=== PATIENT | female | born 1950 | race Caucasian/White ===

== ENCOUNTER 2022-04-08 17:41 | Emergency (ER) | payer MEDICARE, SELFPAY ==
[2022-04-08 17:52] VITALS: BP 143/116; PULSE 79; RESP 16; TEMP 36.1; O2SAT 99
--- NOTE | 2022-04-08 20:28 | ED.SKABFB ---
HPI - Skin/Abscess/Foreign Bdy General Chief complaint: Skin/Abscess/Foreign Body Stated complaint: red around left lower lip Time Seen by Provider: 04/08/22 20:28 Source: patient, RN notes reviewed and old records reviewed Mode of arrival: ambulatory Limitations: no limitations History of Present Illness HPI narrative: 72 year old female who presents to [facility] care with complaints of yesterday having white filled lesion to the left lower lip which she squeezed and now area is red and swollen with no acute pain to area. Patient voices concern for abscess or cellulitus to area. Patient has taken aspirin and applied ice to area. MD complaint: abscess/boil Onset (ago): day(s) (2) Treatments prior to arrival: attempted to drain pus at home Related Data Home Medications Medication Instructions Recorded Confirmed ergocalciferol (vitamin D2) 1,250 1,250 mcg PO WEEKLY 04/08/22 04/08/22 mcg (50,000 unit) capsule famotidine 20 mg tablet 20 mg PO BID 04/08/22 04/08/22 metoprolol succinate 25 mg 25 mg PO DAILY 04/08/22 04/08/22 tablet,extended release 24 hr sertraline 100 mg tablet 100 mg PO DAILY 04/08/22 04/08/22 Allergies Allergy/AdvReac Type Severity Reaction Status Date / Time Penicillins Allergy Intermediate Hives Verified 04/08/22 19:25 Review of Systems Review of Systems: CONSTITUTIONAL: Denies fever, chills, or sweats. CARDIOVASCULAR: Denies chest pain, palpitations, or edema. RESPIRATORY: Denies cough or dyspnea. GASTROINTESTINAL: Denies abdominal pain, nausea, vomiting SKIN: Reports redness and swelling. White purulent drainage from lesion to left lip squeezed on lesion now red and swollen lesion with surrounding redness, no pain beyond proportion MUSCULOSKELETAL: Denies myalgia. NEUROLOGIC: Denies headache, numbness All systems reviewed & are unremarkable except as noted in HPI and below PMFSH Past Medical History Medical History (Updated 04/15/22 @ 08:58 by Brittany Sharpe NP) GERD (gastroesophageal reflux disease) Hypertension OCD (obsessive compulsive disorder) Surgical History Surgical History (Updated 04/15/22 @ 08:48 by Brittany Sharpe NP) History of lumpectomy of right breast radiation treatment 2009 Social History Social History (Updated 04/15/22 @ 08:48 by Brittany Sharpe NP) Smoking status: Never smoker Alcohol intake: unknown Substance use: never Gender identity (if verbalized by the patient): Female Comments At time of signature, agree with nursing past medical, surgical, social and family history. There is no relevant family history pertinent to the presenting complaint Exam Narrative: GENERAL: Well-appearing, well-nourished, and in no acute distress. HEAD: Normocephalic, atraumatic. EYES: PERRLA and EOMI. ENT: Nares clear, no rhinorrhea or epistaxis. Mucous membranes moist. NECK: Supple. no lymphadenopathy CHEST: Clear to auscultation. No respiratory distress.SAO2 99% on room air HEART: Regular rate and rhythm. No murmur heard. Normal peripheral pulses. ABDOMEN: Soft, nontender, nondistended, normal active bowel sounds. EXTREMITIES: Normal range of motion. No edema SKIN: Warm, dry. Erythema, induration, minimal tenderness, no warmth to area around lesion left lip. NEURO: No focal deficits. Alert and oriented x3. Course Course Emergency Course: Patient is aware of diagnosis, understands and agrees to treatment plan. Anticipatory guidance given. Patient agrees to follow-up as directed and is aware of reasons to seek care at the emergency department. Portions of this record may have been created with voice recognition software Level of Care: Express Care Visit Vital Signs Vital signs: Vital Signs Temperature 36.1 C L 04/08/22 17:52 Pulse Rate 79 04/08/22 17:52 Respiratory Rate 16 04/08/22 17:52 Blood Pressure 143/116 H 04/08/22 17:52 Pulse Oximetry 99 04/08/22 17:52 Oxygen Delivery Room Air 04/08/22 17:52 Temperature 36.1 C L
== END 2022-04-08 20:40 | disposition home or self-care (01) ==
PROVIDERS: Emergency Provider Registered Nurse; PCP Internal Medicine
DX: L02.01 Cutaneous abscess of face (principal)
CPT/HCPCS: 99213; G0463

== ENCOUNTER 2022-07-10 10:12 | Emergency (ER) | payer MEDICARE, SELFPAY ==
--- NOTE | 2022-07-10 10:18 | ED.SKABFB ---
HPI - Skin/Abscess/Foreign Bdy General Chief complaint: Skin/Abscess/Foreign Body Stated complaint: left foot non healing wound Time Seen by Provider: 07/10/22 10:18 Source: patient and RN notes reviewed History of Present Illness HPI narrative: Patient is a 72-year-old female presents to urgent care with complaints of a wound on left foot it has been there for approximately 5/6 days. Patient states that it has not drained. States that she put Neosporin time last night. Patient is unsure of how she developed the wound but states that she does wear loafers without socks most days. Denies any fevers. No other acute complaints. No acute distress noted. Patient aware of the plan of care. Some parts of this dictation were generated by voice recognition software and may contain typographical and/or grammatical inaccuracies. Related Data Home Medications Medication Instructions Recorded Confirmed ergocalciferol (vitamin D2) 1,250 1,250 mcg PO WEEKLY 04/08/22 04/08/22 mcg (50,000 unit) capsule famotidine 20 mg tablet 20 mg PO BID 04/08/22 04/08/22 metoprolol succinate 25 mg 25 mg PO DAILY 04/08/22 04/08/22 tablet,extended release 24 hr sertraline 100 mg tablet 100 mg PO DAILY 04/08/22 04/08/22 Allergies Allergy/AdvReac Type Severity Reaction Status Date / Time Penicillins Allergy Intermediate Hives Verified 04/08/22 19:25 Review of Systems Review of Systems: CONSTITUTIONAL: Denies fever, chills, or sweats. EYES: Denies visual changes, redness, or discharge. ENT: Denies rhinorrhea, congestion, sore throat, or otalgia. CARDIOVASCULAR: Denies chest pain, palpitations, or edema. RESPIRATORY: Denies cough or dyspnea. GASTROINTESTINAL: Denies abdominal pain, nausea, vomiting, or diarrhea. GENITOURINARY: Denies dysuria or hematuria. SKIN: Reports a wound on the left foot MUSCULOSKELETAL: Denies back pain, joint pain, or myalgia. NEUROLOGIC: Denies headache, numbness, or weakness. All other systems reviewed are negative, except as documented in HPI. [facility] Past Medical History Medical History (Updated 07/10/22 @ 10:35 by ILA Miranda) GERD (gastroesophageal reflux disease) Hypertension OCD (obsessive compulsive disorder) Surgical History Surgical History (Updated 04/15/22 @ 08:48 by Brittany Sharpe NP) History of lumpectomy of right breast radiation treatment 2009 Social History Social History (Updated 04/15/22 @ 08:48 by Brittany Sharpe NP) Smoking status: Never smoker Alcohol intake: unknown Substance use: never Living arrangements: with family Gender identity (if verbalized by the patient): Female Comments At the time of my signature, I reviewed and agree with the nursing past medical, surgical, social, and family history. There is no relevant family history pertinent to the patient complaint. Exam Narrative: GENERAL: This is a well-nourished, well-developed patient, in no apparent distress. HEAD: normocephalic, atraumatic. EYES: PERRL. Sclera clear/white. Vision is grossly intact. EARS: External ears normal, auditory canals clear and without drainage, TMs normal without perforation. Hearing grossly intact. NOSE: External nose normal with no obvious nasal discharge, nares without redness, no rhinorrhea. THROAT: Mucous membranes moist NECK: Neck supple SKIN: 2 x 2 cm area of erythema to the lateral aspect of the left foot to the 5th metatarsal with 0.25 cm scabs without drainage. Warm, intact with no suspicious lesions or rash, good texture and turgor. NEURO: awake, alert, and oriented to person, place and time. There were no obvious focal neurologic abnormalities. EXTREMITIES: No clubbing, cyanosis, or edema. Positive strong pedal pulse with capillary refill less than 2 seconds. No signs of cellulitis to left lower extremity Course Course Level of Care: Express Care Visit Vital Signs Vital signs: Vital Signs Temperature 97.2 F L 07/10/22 10:19 Pulse Rate 82
[2022-07-10 10:19] VITALS: BP 141/60; PULSE 82; RESP 16; TEMP 36.2; O2SAT 95
== END 2022-07-10 10:42 | disposition home or self-care (01) ==
PROVIDERS: Emergency Provider Nurse Practitioner Family
DX: S91.302A Unspecified open wound, left foot, initial encounter (principal); I10 Essential (primary) hypertension; X58.XXXA Exposure to other specified factors, initial encounter
CPT/HCPCS: 99213; G0463

== ENCOUNTER 2024-12-20 10:51 | Emergency (ER) | payer MEDICARE, SELFPAY ==
--- OUTSIDE RECORDS SUMMARY | 2024-12-20 10:54 | XMS_ITS | Clinical Summary ---
Author Organization [facility] Address [address] [place] [address] Care Team Providers Care Seo Strategist Name Role Phone Anselmo Holt MD Primary Care Provider [phone] Allergies Active Allergy Reactions Criticality Noted Date Comments Latex Rash Low 11/11/2021 Nitrofurantoin Hives High 02/09/2011 Nitrofurantoin Macrocrystalline Hives High 02/09/2011 Nitrofurantoin Monohyd/M-Cryst Hives,Swelling High 09/14/2009 Penicillins Rash,Hives High 06/15/2009 Reaction: Hives, , Reaction: Hives, , Reaction: Hives, , Reaction: Hives, Sulfa (Sulfonamide Antibiotics) Hives High Medications ipratropium bromide (ATROVENT) 21 mcg (0.03 %) [place], Non-AerosolIndi cations:Vasomot or rhinitis Administer 2 Sprays in each nostril 2 times daily. 30 mL 4 05/09/20 23 Active ergocalciferol (VITAMIN D2) 50,000 unit capsule Take 1 Capsule (50,000 Units) by mouth every 7 days. 12 Capsule 3 05/10/20 23 Active famotidine (PEPCID) 20 mg tabletIndicatio ns:Gastroesopha geal reflux disease, unspecified whether esophagitis present Take 1 Tablet (20 mg) by mouth 2 times daily. 180 Tablet 3 08/13/19 24 Active ezetimibe (Zetia) 10 mg tablet Take 1 Tablet (10 mg) by mouth daily. 100 Tablet 3 09/12/19 24 Active doxycycline hyclate (VIBRAMYCIN) 100 mg capsule Take 1 Capsule (100 mg) by mouth 2 times daily. 20 Capsule 1 03/14/20 24 Active azelastine (ASTELIN) 137 mcg/actuation nasal spray Administer 2 Sprays in each nostril 2 times daily. 30 mL 3 03/14/20 24 Active gabapentin (NEURONTIN) 300 mg capsule Take 1 Capsule (300 mg) by mouth 3 times daily. 90 Capsule 3 03/14/20 24 Active sertraline (ZOLOFT) 100 mg tablet TAKE 1 TABLET(100 MG) BY MOUTH DAILY AT BEDTIME 90 Tablet 3 05/03/20 24 Active metoprolol succinate (TOPROL XL) 25 mg Extended Release 24 hour tablet TAKE 1 TABLET(25 MG) BY MOUTH DAILY AT BEDTIME 90 Tablet 3 12/05/19 25 Active metoprolol succinate (TOPROL XL) 25 mg Extended Release 24 hour tablet TAKE 1 TABLET(25 MG) BY MOUTH DAILY AT BEDTIME 90 Tablet 3 11/26/19 24 025 Discontinued Active Problems Patient Care Coordination No te Formatting of this note migh t be different from the original. 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/18 Problem Noted Date Diagnosed Date Prediabetes 09/16/2024 Gastroesophageal reflux disease 12/21/2021 History of breast cancer 05/29/2017 Hyperlipidemia 11/20/2016 HTN (hypertension) 09/22/2013 Chronic rhinitis 06/15/2009 OCD (obsessive compulsive disorder) 06/15/2009 Resolved Problems Problem Noted Date Diagnosed Date Resolved Date Gallstones 04/21/2021 05/10/2021 Breast cancer, stage 1 07/12/201005/29 Foot pain 06/15/2009 07/12/2010 Heart murmur 06/15/2009 11/28/2011 Encounters Date Type Department Care Team Description 12/03/2024 [facility] [address] [address] Anselmo Holt MD 11/26/2024 External Device Data ST[facility] ABSTRACTION Provider, Abstract 11/25/2024 External Device Data [facility]STRACTION Provider, Abstract 11/04/2024 External Device Data [facility]STRACTION Provider, Abstract 10/28/2024 External Device Data [facility] ABSTRACTION Provider, Abstract 10/07/2024 External Device Data [facility] ABSTRACTION Provider, Abstract 10/02/2024 External Device Data [facility] ABSTRACTION Provider, Abstract 10/01/2024 External Device Data [facility] ABSTRACTION Provider, Abstract 09/30/2024 External Device Data [facility] ABSTRACTION Provider, Abstract from Last 3 Months Immunizations Immunization Administration Dates Next Due (ADACEL/BOOSTRIX)(10 YR UP) TDAP VACCINE, 0.5ML, IM 05/14/2008,01/06/2008 (DONALD) COVID-19 VACCINE - EMERGENCY USE AUTHORIZATION, AD26,COV2S(PF) 0.5 ML IM SUSP 07/22/2020 (PNEUMOVAX 23)(50 YRS UP) PN EUMOCOCCAL POLYSACCHARIDE (PPV23) 0.5 ML, IM 11/06/2018 (PREVNAR 13)(6 WKS UP) PNEUM OCOCCAL CONJUGATE (PCV13) 0.5 ML, IM 10/04/2017 (PREVNAR 20)(6 WKS UP) PNEUM OCOCCAL CONJUGATE VACCINE 20-VALENT (PCV20), POLYSACCHARIDE SFT359 CONJUGATE, ADJUVANT 0.5 ML (PF) IM 09/12/2023 INFLUENZA VACCINE HIGH DOSE QUADRIVALENT 65 YR UP PF IM 03/13/2023,03/17/2021,01/14/2020 INFLUENZA VACCINE HIGH DOSE TRIVALENT SPLIT VIRUS, (65 YR UP), 0.5ML (PF), IM 03/14/2024 Influenza Seasonal Unspecifi ed Formulation IM 04/07/2022,04/02/2013 Influenza Vaccine High Dose 65+ Yrs IM 9 Family History Medical History Relation Name Comments No Known Problems Daughter Diabetes Father Isaac Olivia Cancer Maternal Grandfather [place] Dick Melanoma Maternal Grandfather [place] Dick Colon Cancer Maternal Grandmother Julianna Dick Cancer Mother Amy Andre High Cholesterol Mother Amy Andre Hypertension Mother Amy Andre Skin Cancer Mother Amy Andre Breast Cancer Paternal Grandmother Corwin Blood Clots Sister 1 may Cancer Sister 1 cosme Hypertension Sister 1 may No Known Problems Sister 2 Relation Name Status Comments Daughter Alive Father Isaac Olivia Maternal Grandfather [place] Dick Maternal Grandmother Julianna Tungett Mother Amy Powell Alive Paternal Grandmother Olivia Sister 1 may Alive Sister 2 Alive Social History Tobacco Use Types Packs/Day Years Used Date Smoking Tobacco: Never Passive Smoke Exposure: Never Smokeless Tobacco: Never Tobacco Cessation:Counseling Given: No Alcohol Use Standard Drinks/Week Comments Never 0 (1 standard drink = 0.6 oz pur e alcohol) Comments No Sex and Gender Information Value Date Recorded Sex Assigned at Not on file Legal Sex Female 4:45 AM 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 ENGINEER Gender Identity Not on file Sexual Orientation Not on file Occupation Industry Job Start Date Job End Date RETIRED Not on file Not on file Not on file Last Filed Vital Signs Vital Sign Reading Time Taken Comments Blood Pressure 118/62 09/16/2024 11:57 AM CDT Pulse 77 09/16/2024 11:57 AM CDT Temperature 36.4 C (97.6 F) 03/13/2023 11:35 AM CDT Respiratory Rate 16 03/13/2023 11:35 AM CDT Oxygen Saturation 96% 09/16/2024 11:57 AM CDT Inhaled Oxygen Concentration - - Weight 84.6 kg (186 lb 6.4 oz) 09/16/2024 11:57 AM CDT Height 160 cm (5' 3) 09/16/2024 11:57 AM CDT Body Mass Index 33.02 09/16/2024 11:57 AM CDT Plan of Treatment Upcoming Encounters Date Type Department Care Team (Late st Contact Info) Description 03/23/2025 3:00 PM 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 ENGINEER Office Visit [facility] [address] [id number] Anselmo Holt MD [address] [place], [place] [id number] Health Maintenance Due Date Last Done Comments FIT/ DNA Q 3 YEARS (AUTO ORDER) 1970 FIT-DNA Q 3 years 1997 FIT/FOBT Q 1 year 1997 Flex Sig/CT Colonography Q 5 years 1997 ZOSTER VACCINE (1 of 2) 2002 RSV VACCINE (60+ or ) (1 - Risk 60-74 years 1-dose series) 2012 FIT/FOBT Q 1 YEAR (AUTO ORDER) 04/23/2018 04/23/2017 DTAP/TDAP/TD VACCINES (3 - T d or Tdap) 05/14/2018 05/14/2008, 01/06/2008 COVID-19 Vaccine (2 - 2023-2 5 season) 2024 07/22/2020 Preventative Visit- Commercial 05/14/2024 0 09/12/2023, 07/14/2019, 09/17/2014, Additional history exists INFLUENZA VACCINE (#1) 2024 4, 03/13/2023, 04/07/2022, Additional history exists BREAST CANCER SCREENING 05/21/2025 05/21/19, 05/21/2024, 05/18/2023, Additional history exists FLEX SIG/CT COLONOGRAPHY Q 5 YEARS (AUTO ORDER) 04/26/2026 04/26/2021, 04/26/2021 OSTEOPOROSIS SCREENING 03/26/2028 3, 03/26/2023, 09/29/2020, Additional history exists COLORECTAL CANCER SCREENING (AUTO ORDER) 04/26/2031 04/26/2021, 04/26/2021, 04/26/2021, Additional history exists COLORECTAL SCREENING 04/26/2031 04/26/2021, 04/26/2021, 04/26/2021, Additional history exists Colorectal Cancer Screening (AUTO ORDER) 04/26/2031 Colorectal Cancer Screening 04/26/2031 PNEUMOCOCCAL VACCINE 50+ YEARS Completed 0 09/12/2023, 11/06/2018, 10/04/2017 Medical Devices Implanted Type Area Vision Rehabilitation Therapist Device Identifier Shelf Expiration Date Model / Serial / Lot Endo Clip Ii 10mm [id number] - [id number] Implanted:Qty : 1 on 04/27/2021 by Ronnie Tillman MD at [facility] Clip N/A: Abdomen [employer] - COVIDIEN [id number] 12/11/2025 [id number] / / [id number] Procedures Procedure Name Priority Date/Time Associated Diagnosis Comments MAMMO SCREEN BILAT W OR WO CAD Routine 05/18/2023 5:44 PM 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 ENGINEER XR DEXA BONE DENSITY AXIAL 1 OR MORE SITES Routine 03/26/2023 11:20 AM 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 ENGINEER Osteopenia of multiple sites COLONOSCOPY REPORT Routine 04/26/2021 from Last 3 Months or Most Recently Relevant to Health Maintenance Results * MAMMO SCREEN BILAT W OR WO CAD (05/18/2023 5:44 PM 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 ENGINEER) Anatomical Region Laterality Modality Breast Bilateral Mammography us Abstract Provider MAMMO ORDERABLES Edited Result - Final * XR DEXA BONE DENSITY AXIAL 1 OR MORE SITES (03/26/2023 11:20 AM 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 ENGINEER) Anatomical Region Laterality Modality Digital Radiogra phy 03/26/2023 12:0 0 PM 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 ENGINEER Impressions 03/26/2023 12:44 PM 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 ENGINEER IMPRESSION: This is a summary page. Please refer to the complete detailed report found in the Imaging Section of the [facility] EMR. Osteopenia. Lumbar Spine: t-Score: -1.8 Left Femoral Neck: t-Score: -1.7 Left Total Femur: t-Score: -1.2 Right Femoral Neck: t-Score: -2.3 Right Total Femur: t-Score: -1.5 Left Forearm: t-Score: -1.2 Statistical change: No significant change in BMD since the prior exam. FRAX FRACTURE RISK ASSESSMENT: (Only valid Between 40-89 Years Of Age) Risk factors: History of fracture as an adult. 10 Year Probability Of Fracture Major Osteoporotic: 20.2 % Hip: 4.5 % Comparison population: [place], Race: White A major osteoporotic fracture is defined as a fracture of the spine, forearm, hip or shoulder. Definitions: Normal: T-score above -1.0 Osteopenia T-score less than -1.0 and above -2.5 Osteoporosis: T-score <= -2.5 Follow-up Recommendations: Patients without high risk factors for osteoporosis T-score -1.0 to -1.5 - Consider repeat BMD in 5-10 years T-score -1.5 to - 2.0 - Consider repeat BMD in 3-5 years T-score -2.0 to - 2.5 - Consider repeat BMD every 2 years Patients on treatment for osteoporosis 1-2 years after initiation of treatment and every 2 years [address] Dr[address] Binu Dickerson MD DICTATION LOCATION: 1 Narrative 03/26/2023 12:44 PM 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 ENGINEER EXAMINATION: BONE DENSITY STUDY (DXA) DATE: 03/26/2023 11:20 AM HISTORY: 72 years Female. Postmenopausal. Osteopenia. Screening for osteoporosis. Orthopedic hardware L5-S1. PROCEDURE: Planar images of the lumbar spine, hip(s) and forearm(s) using a LUNAR DEXA scanner for bone mineral density determination (BMD). Prior bone density: 09/29/2020 FINDINGS: Lumbar Spine (L1-L2): t-Score: -1.8 0.962 g/sq cm Prior: 0.944 g/sq cm Left Femoral Neck: t-Score: -1.7 0.801 g/sq cm Prior: 0.748 g/sq cm Left Total Femur: t-Score: -1.2 Right Femoral Neck: t-Score: -2.3 0.723 g/sq cm Prior: 0.755 g/sq cm Right Total Femur: t-Score: -1.5 Left 33% Radius: t-Score: -1.2 0.767 g/sq cm Prior: 0.701 g/sq cm INCIDENTAL FINDINGS: L3-L4 excluded bcause of degenerative changes. Procedure Note Binu Dickerson MD - 03/26/2023 EXAMINATION: BONE DENSITY STUDY (DXA) DATE: 03/26/2023 11:20 AM HISTORY: 72 years Female. Postmenopausal. Osteopenia. Screening for osteoporosis. Orthopedic hardware L5-S1. PROCEDURE: Planar images of the lumbar spine, hip(s) and forearm(s) using a LUNAR DEXA scanner for bone mineral density determination (BMD). Prior bone density: 09/29/2020 FINDINGS: Lumbar Spine (L1-L2): t-Score: -1.8 0.962 g/sq cm Prior: 0.944 g/sq cm Left Femoral Neck: t-Score: -1.7 0.801 g/sq cm Prior: 0.748 g/sq cm Left Total Femur: t-Score: -1.2 Right Femoral Neck: t-Score: -2.3 0.723 g/sq cm Prior: 0.755 g/sq cm Right Total Femur: t-Score: -1.5 Left 33% Radius: t-Score: -1.2 0.767 g/sq cm Prior: 0.701 g/sq cm INCIDENTAL FINDINGS: L3-L4 excluded bcause of degenerative changes. IMPRESSION: This is a summary page. Please refer to the complete detailed report found in the Imaging Section of the [facility] EMR. Osteopenia. Lumbar Spine: t-Score: -1.8 Left Femoral Neck: t-Score: -1.7 Left Total Femur: t-Score: -1.2 Right Femoral Neck: t-Score: -2.3 Right Total Femur: t-Score: -1.5 Left Forearm: t-Score: -1.2 Statistical change: No significant change in BMD since the prior exam. FRAX FRACTURE RISK ASSESSMENT: (Only valid Between 40-89 Years Of Age) Risk factors: History of fracture as an adult. 10 Year Probability Of Fracture Major Osteoporotic: 20.2 % Hip: 4.5 % Comparison population: [place], Race: White A major osteoporotic fracture is defined as a fracture of the spine, forearm, hip or shoulder. Definitions: Normal: T-score above -1.0 Osteopenia T-score less than -1.0 and above -2.5 Osteoporosis: T-score <= -2.5 Follow-up Recommendations: Patients without high risk factors for osteoporosis T-score -1.0 to -1.5 - Consider repeat BMD in 5-10 years T-score -1.5 to - 2.0 - Consider repeat BMD in 3-5 years T-score -2.0 to - 2.5 - Consider repeat BMD every 2 years Patients on treatment for osteoporosis 1-2 years after initiation of treatment and every 2 years thereafter D[address] Dr[address] Binu Dickerson MD DICTATION LOCATION: 1 us Anselmo Holt MD DIAGNOSTIC IMAGING ORDERABLES Final Result * COLONOSCOPY REPORT (04/26/2021) us Abstract Provider GI PROCEDURE ORDERABLES Edited Result - Final EXTERNAL LAB from Last 3 Months or Most Recently Relevant to Health [place] [address] RX [employer] RX Member Subscriber Plan / Payer (Ef fective 2021-Present) Name:Juan Matamoros Relation to Subscriber:Self Name:Juan Matamoros Subscriber ID:Not on file Payer ID:Not on file Group ID:[id number] Type:RX Medicare Part D Address: [address] [place] [address] [employer] PPO [facility] Advance Directives For more information, please contact: [phone] * Full Code (Latest Code Status on File) Date Activated Date Inactivated Comments 04/27/2021 9:38 AM 04/27/2021 3:23 PM * Full Code Date Activated Date Inactivated Comments 04/27/2021 6:19 AM 04/27/2021 9:38 AM Care Teams Seo Strategist Relationship Specialty Start Date End Date Anselmo Holt MD PCP - General 06/15/09
--- OUTSIDE RECORDS SUMMARY | 2024-12-20 10:54 | XMS_ITS | Clinical Summary ---
Author Organization [facility] Address [address] [place] [address] Care Team Providers Care Special Procedures Tech Name Role Phone Jany Lino MD Primary Care Provider + Aft, Destinee Callahan MD PhD Unavailable Allergies Active Allergy Reactions Criticality Noted Date Comments Latex Hives,Itching,Other (See comments),Rash Medium 09/20/2021 blisters Nitrofurantoin Hives High 02/09/2011 Reaction: Hives, , , Nitrofurantoin Macrocrystalline Hives Medium 02/09/2011 Nitrofurantoin Monohyd/M-Cryst Hives High 05/21/2024 Penicillins Hives,Rash,Other (See comments) High 06/15/2009 Reaction: Hives Sulfa (Sulfonamide Antibiotics) Hives High Medications metoprolol XL (TOPROL-XL) 25 mg 24 hr tablet take 1 tablet by ORAL route every day 0 0 4 Active sertraline (ZOLOFT) 100 mg tablet take 1 tablet by ORAL route every day 0 0 4 Active famotidine (PEPCID) 20 mg tablet Take 1 tablet (20 mg total) by mouth 2 times daily 9 Active fluticasone propionate (FLONASE) 50 mcg/actuation nasal sprayIndications:A llergic Rhinitis Administer 1 spray into each nostril daily 9.9 mL 2 4 Active gabapentin (NEURONTIN) 300 mg capsule Take 1 capsule (300 mg total) by mouth 3 (three) times a day 4 Active ondansetron ODT (ZOFRAN-ODT) 4 mg disintegrating tablet Take 1 tablet (4 mg total) by mouth every 8 (eight) hours as needed 4 Active Active Problems Problem Noted Date Diagnosed Date Family history of colon cancer 03/02/2021 Overview (03/02/2021): Added automatically from request for surgery [id number] Encounter for screening colonoscopy 03/02/2021 Overview (03/02/2021): Added automatically from request for surgery [id number] Irritable bowel syndrome with diarrhea 9 Assessment & Plan (04/21/2019 3:18 PM AMBULANCE PARAMEDIC): Severe anxietya nd recently after awakening has 2 hour os several bms without blood and then is asx vor 22 hours. Colonoscopy last yr. Diet complstely deficient in fiber so will begin hi fiber diet and retuyrn in 4 weeks. Spinal stenosis of lumbar re gion with neurogenic claudication 07/16/2018 Assessment & Plan (08/21/2018 11:55 AM CDT): Assessment Retrolisthesis with spinal stenosis L2-3. Compression fracture T11-T12 Plan Left L2-3 interlaminar epidural steroid injection Assessment & Plan (07/16/2018 10:42 AM AMBULANCE PARAMEDIC): Assessment Spinal stenosis with healed fusion L4-5 and severe adjacent level problems at L2-3 and L3-[address] scan lumbar spine to evaluate L2-3 and L3-4 which are poorly evaluated on the MRI Hx of colonic polyps 04/16/2018 Overview (04/16/2018): Added automatically from request for surgery [id number] Blood per rectum 04/16/2018 Overview (04/16/2018): Added automatically from request for surgery [id number] History of malignant neoplasm of breast 04/16/20 17 Actinic keratosis 12/14/2016 Seborrheic eczema 05/01/2016 Rash 12/02/2013 Senile lentigo 12/02/2013 Anxiety state 09/27/2013 Overview (08/16/2016): ANXIETY STATE NOS Gastroesophageal reflux disease 09/27/2013 Overview (08/18/2016): ESOPHAGEAL REFLUX Assessment & Plan (01/18/2017 2:38 PM CDT): Substernal burning with burning moving up to throat. This is assoc with feeling of fullness and dysphagia. EGD 05/29 HH only. Sx had been better on prilosec and now only on ranitidine. Discussed egd but will try better acid suppression with dexilant and go from there. Lentigo 12/26/2012 Neoplasm of connective and soft tissue 2 Immunizations Immunization Administration Dates Next Due Influenza, Quadrivalent, Hig h Dose, Preservative Free, Intrr 03/13/2023,03/17/2021,01/14/2020 Influenza, Trivalent, High D ose, Split, Preservative Free, Intramuscular 03/14/2024,03/10/2019 Influenza, Trivalent, IM (MDV) 04/07/2022,2012 Pneumococcal Conjugate PCV 13 10/04/2017 Pneumococcal Conjugate Pcv20 09/12/2023 Pneumococcal Polysaccharide PPV23 11/06/2018 Tdap 05/14/2008,01/06/2008 Surgical History Surgery Date Site/Laterality Comments OTHER SURGICAL HISTORY 05/14/1995 - 05/13/1996 lumbar disc fusion OTHER SURGICAL HISTORY 05/14/1981 - 05/13/1982 T & A TONSILLECTOMY SPINAL FUSION LAMINECTOMY BREAST LUMPECTOMY 05/14/2009 - 05/13/2010 Right SECTION COLONOSCOPY 04/13/2018 - 05/13/2018 CHOLECYSTECTOMY 04/13/2021 - 05/13/2021 Medical History Medical History Date Comments Hx Other Medical OCD Breast cancer (HCC) 2009 Gastroesophageal reflux disease Colon polyp Irritable bowel syndrome Hypertension Depression Hypercholesteremia Inflammatory bowel disease Family History Medical History Relation Name Comments Colon cancer Maternal Grandmother Hypertension Mother Hypertension; Skin cancer Mother Cancer, skin; Relation Name Status Comments Maternal Grandmother Mother Social History Tobacco Use Types Packs/Day Years Used Date Smoking Tobacco: Never Smokeless Tobacco: Never Tobacco Cessation:Counseling Given: Not Answered Alcohol Use Standard Drinks/Week Comments No 0 (1 standard drink = 0.6 oz pur e alcohol) AUDIT-C Answer Date Recorded Q1: How often do you have a drink containing alc ohol? Never 04/26/2021 Average Number of Drinks Not on file 021 Q3: How often do you have si x or more drinks on one occasion? Never 04/26/2021 PHQ-2 Answer Date Recorded PHQ-2 Score 0 04/21/2019 Comments No Sex and Gender Information Value Date Recorded Sex Assigned at Not on file Legal Sex Female 11:56 PM AMBULANCE PARAMEDIC Gender Identity Not on file Sexual Orientation Not on file Occupation Industry Job Start Date Job End Date RETIRED Not on file Not on file Not on file Obstetrics History Last Filed Vital Signs Vital Sign Reading Time Taken Comments Blood Pressure 124/66 03/02/2022 8:57 AM CDT Pulse 98 03/02/2022 8:57 AM CDT Temperature 37.4 C (99.4 F) 03/02/2022 8:57 AM CDT Respiratory Rate 22 03/02/2022 8:57 AM CDT Oxygen Saturation 97% 03/02/2022 8:57 AM CDT Inhaled Oxygen Concentration - - Weight 83.5 kg (184 lb) 05/21/2024 11:34 AM AMBULANCE PARAMEDIC Height 160 cm (5' 2.99) 05/21/2024 11:34 AM AMBULANCE PARAMEDIC Body Mass Index 32.6 05/21/2024 11:34 AM AMBULANCE PARAMEDIC Plan of Treatment Health Maintenance Due Date Last Done Comments Hepatitis C Screening 1950 Hepatitis B Screening 1970 Zoster Vaccine (1 of 2) 2002 Well Visit 65+ 2017 DTaP/Tdap/Td Vaccine (3 - Td or Tdap) 05/14/2018 05/14/2008, 01/06/2008 Depression Screening 04/21/2020 04/21/2019, 04/21/2019, 08/21/2018, Additional history exists Fall Risk Assessment 04/26/2022 04/26/2021, 04/21/20 19 Covid-19 Vaccine (2 - 2023-2 5 season) 2024 07/22/2020 Influenza Vaccine (#1) 2025 4, 03/13/2023, 04/07/2022, Additional history exists Osteoporosis Screening-Bone Density Scan 03/26/2025 03/26/2023, 03/26/2023, 09/29/2020, Additional history exists Breast Cancer Screening-Mammogram 05/21/2025 05/21/2024, 05/18/2023, 05/18/2023, Additional history exists Colon Cancer Screening-Colonoscopy 04/26/2031 04/26/2021, 05/13/2018, 05/25/2015, Additional history exists Colon Cancer Screening-CT Colonography Discontinued 04/26/2021, 05/13/2018, 05/25/2015, Additional history exists Colon Cancer Screening-DNA Stool Discontinued 04/26/2021, 05/13/2018, 05/25/2015, Additional history exists Colon Cancer Screening-FIT Discontinued 04/26, 05/13/2018, 05/25/2015, Additional history exists Colon Cancer Screening-Sigmoidoscopy Discontinued 04/26/2021, 05/13/2018, 05/25/2015, Additional history exists Pneumococcal vaccine 65+ Completed 024, 11/06/2018, 10/04/2017 Procedures Procedure Name Priority Date/Time Associated Diagnosis Comments SCREENING MAMMOGRAM BILATERAL W JOSÉ MIGUEL Schedule Routine, Read Routine (OP Routine) 05/21/2024 11:56 AM AMBULANCE PARAMEDIC History of breast cancer History of malignant neoplasm of breast Breast pain Encounter for screening mammogram for malignant neoplasm of breast COLONOSCOPY 04/26/2021 7:32 AM AMBULANCE PARAMEDIC DEXA AXIAL SKELETON BONE DENSITY 1 OR MORE SITES Routine 09/24/2014 2:27 PM CDT from Last 3 Months or Most Recently Relevant to Health Maintenance Results * Screening Mammogram Bilateral W José Miguel (05/21/2024 11:56 AM AMBULANCE PARAMEDIC) Anatomical Region Laterality Modality Breast Bilateral Mammography Narrative 05/21/2024 3:54 PM AMBULANCE PARAMEDIC Mammogram Technique: Bilateral Digital Breast Tomosynthesis, Bilateral C-view 2D Screening mammogram. Views obtained: bilateral craniocaudal and bilateral mediolateral oblique. Computer Aided Detection was performed. Mammogram Findings: The present examination has been compared to prior imaging studies performed at [facility] on 05/17/2022, 09/11/2022 and 05/18/2023. There are scattered areas of fibroglandular density. There is no suspicious abnormality in either breast. Impression: There is no mammographic evidence of malignancy. Annual screening mammography is recommended. OVERALL FINAL ASSESSMENT: BI-RADS CATEGORY 1: Negative. Procedure Note Funmi Augustine MD - 05/21/2024 Mammogram Technique: Bilateral Digital Breast Tomosynthesis, Bilateral C-view 2D Screening mammogram. Views obtained: bilateral craniocaudal and bilateral mediolateral oblique. Computer Aided Detection was performed. Mammogram Findings: The present examination has been compared to prior imaging studies performed at [facility] on 05/17/2022, 09/11/2022 and 05/18/2023. There are scattered areas of fibroglandular density. There is no suspicious abnormality in either breast. Impression: There is no mammographic evidence of malignancy. Annual screening mammography is recommended. OVERALL FINAL ASSESSMENT: BI-RADS CATEGORY 1: Negative. Brooke Lindsay NP IMG MAMMO PROCEDURES Final Result * COLONOSCOPY (04/26/2021 7:32 AM AMBULANCE PARAMEDIC) Anatomical Region Laterality Modality Other Narrative Procedure Note Tirso Ha MD - 04/26/2021 7:32 AM CST [facility] Patient Name: Juan Matamoros Procedure Date: 04/26/2021 7:32 AM Date of : 1950 Admit Type: Outpatient Age: 71 Gender: Female Attending MD: Tirso Ha M.D. Room: [facility] ENDOSCOPY ROOM 2 Note Status: Finalized Patient Profile: Refer to note in patient chart for documentation of history and physical. Procedure: Colonoscopy Indications: High risk colon cancer surveillance: Personalhistory of colonic polyps, Last colonoscopy: April2018 Referring MD: Jany Lino M.D. Providers: Tirso Ha M.D. Impression: - Hemorrhoids found on perianal exam. - The entire examined colon is normal. - No specimens collected. Recommendation: - Discharge patient to home. - Resume previous diet. - Continue present medications. - Repeat colonoscopy in 5 years for surveillance. - Return to primary care physician as previously scheduled. Medicines: Propofol per Anesthesia Complications: No immediate complications. Estimated Blood Loss: Estimated blood loss: none. Procedure: Pre-Anesthesia Assessment: - This assessment was completed [Time ofAssessment] prior to the administration of sedation. The benefits, risks and alternatives of theprocedure and sedation were discussed and informed consentwas obtained. All questions were answered. Please referto the signed informed consent document in the medical record. The bowel preparation used was Miralax and bisacodyl tablets via single dose instruction. The scope was passed under direct vision. TheColonoscope [id number] was introduced through the anus and advanced to the the cecum, identified by appendiceal orifice and ileocecal valve. The colonoscopy was performed without difficulty. The patient tolerated the procedure well. The qualityof the bowel preparation was excellent. Findings: Hemorrhoids were found on perianal exam. The colon (entire examined portion) appeared normal. Electronically signed by Tirso Ha M.D. Tirso Ha M.D. 04/26/2021 9:04:24 AM Number of Addenda: 0 Note Initiated On: 04/26/2021 7:32 AM Procedure Code(s): --- Professional --- G0105, Colorectal cancer screening; colonoscopy on individual at high risk Diagnosis Code(s): --- Professional --- K64.9, Unspecified hemorrhoids Z86.010, Personal history of colonic polyps CPT copyright 2019 [employer]. All rights reserved. The codes documented in this report are preliminary and upon quality assurance consultant reviewmay be revised to meet current compliance requirements. Recognized by the [employer] for promoting quality in endoscopy Tirso Ha MD ENDOSCOPY PROCEDURES Final Re sult * Dexa Axial Skeleton Bone Density 1 or 2 Site (09/24/2014 2:27 PM CDT) Anatomical Region Laterality Modality Body N/A Radiographic Ting ging 09/24/2014 2:27 PM CDT Narrative 09/25/2014 6:43 PM CDT DEXA Bone Density Axial Acc#: [id number] DATE OF EXAM: Sep 24 2014 CLINICAL HISTORY: Compression fracture. L4-5 fusion. RESULT: DXA RIGHT HIP RESULTS SUMMARY: BMD (g/cm2) T-score Z-score Neck 0.745 -0.9 0.5 Total 0.791 -1.2 -0.2 DXA LEFT HIP RESULTS SUMMARY: BMD (g/cm2) T-score Z-score Neck 0.735 -1.0 0.4 Total 0.840 -0.8 0.2 DXA L-SPINE RESULTS SUMMARY: IMPRESSION: 1. LEFT HIP T-SCORE -0.1 NECK; -0.8 TOTAL; NORMAL. TOTAL T-SCORE HAS DECREASED 0.2 (3.3%) SINCE PREVIOUS EXAM ON 04/27/11. 2. RIGHT HIP T-SCORE -0.9 NECK AND -1.2 TOTAL; OSTEOPENIA. TOTAL T-SCORE HAS DECREASED 0.7 (10.3%) SINCE EXAM ON 04/27/11. COMMENT: W.H.O. defines the T-score of between -1 and -2.5 as osteopenia, the level at which there may be an increased risk of developing osteoporosis and fractures in the future. Osteoporosis is defined as T-score lower than -2.5 (significantly increased risk of fracture due to osteoporosis). T-score is a comparison to peak bone mineral density of young adult reference population. Z-score is a comparison to bone mineral density of sex and age group population. Interpreting Physician: DR EMORY THOMAS M.D. Read on: Sep 24 2014 2:39P Transcribed by: [facility] On: Sep 24 2014 5:52P Approved Electronically by: MARTHA Grullon, DR CAT on: Sep 25 2014 6:43P Attending: JANY LINO Requesting: DR JANY LINO M Requesting Fax: -- Attending Fax: -- Attending ID: [id number] Requesting ID: [id number] Report To 1 ID: [id number] Report To 1 Name: JANY LINO Report To 1 FAX: -- NextGen Order #: Procedure Note Provider, MD Kaci - 09/05/2016 DEXA Bone Density Axial Acc#: [id number] DATE OF EXAM: Sep 24 2014 CLINICAL HISTORY: Compression fracture. L4-5 fusion. RESULT: DXA RIGHT HIP RESULTS SUMMARY: BMD (g/cm2) T-score Z-score Neck 0.745 -0.9 0.5 Total 0.791 -1.2-0.2 DXA LEFT HIP RESULTS SUMMARY: BMD (g/cm2) T-score Z-score Neck 0.735 -1.0 0.4 Total 0.840 -0.80.2 DXA L-SPINE RESULTS SUMMARY: IMPRESSION: 1. LEFT HIP T-SCORE -0.1 NECK; -0.8 TOTAL; NORMAL. TOTAL T-SCORE HASDECREASED 0.2 (3.3%) SINCE PREVIOUS EXAM ON 04/27/11. 2. RIGHT HIP T-SCORE -0.9 NECK AND -1.2 TOTAL; OSTEOPENIA. TOTAL T-SCOREHAS DECREASED 0.7 (10.3%) SINCE EXAM ON 04/27/11. COMMENT: W.H.O. defines the T-score of between -1 and -2.5 as osteopenia, thelevel at which there may be an increased risk of developing osteoporosisand fractures in the future. Osteoporosis is defined as T-score lowerthan -2.5 (significantly increased risk of fracture due to osteoporosis).T-score is a comparison to peak bone mineral density of young adultreference population. Z-score is a comparison to bone mineral density ofsex and age group population. Interpreting Physician: DR EMORY THOMAS M.D. Read on: Sep 24 20142:[id number] Transcribed by: [facility] On: Sep 24 2014 5:52P Approved Electronically by: MARTHA Grullon, DR CAT on: Sep 25 20146:43P Attending: JANY LINO Requesting: DR JANY LINO M Requesting Fax: -- Attending Fax: -- Attending ID: [id number] Requesting ID: [id number] Report To 1 ID: [id number] Report To 1 Name: JANY LINO Report To 1 FAX: -- NextGen Order #: us Historical Provider IMBalwinder DXA PROCEDURES Final Result from Last 3 Months or Most Recently Relevant to Health Maintenance Insurance [address] MEDICARE ADVANTAGE T MEDICARE T MEDICARE Advance Directives For more information, please contact: [phone] * Full Code (Latest Code Status on File) Date Activated Date Inactivated Comments 04/26/2021 7:55 AM 04/26/2021 2:20 PM * Full Code Date Activated Date Inactivated Comments 04/26/2021 7:54 AM 04/26/2021 7:54 AM * Full Code Date Activated Date Inactivated Comments 05/13/2018 7:22 AM 05/13/2018 11:59 AM * Full Code Date Activated Date Inactivated Comments 05/13/2018 7:22 AM 05/13/2018 7:22 AM Care Teams Special Procedures Tech Relationship Specialty Start Date End Date Jany Lino MD PCP - General 07/24/16 Aft, Destinee Callahan MD PhD [id number] [place] [address] Surgeon Surgical Oncology 06/09/22
--- OUTSIDE RECORDS SUMMARY | 2024-12-20 10:54 | XMS_ITS | Encounter Summary ---
Author Organization [facility] Address [address] [facility] Attn: [place] [address] Care Team Providers Care Waste Management Recycling Technician Name Role Phone Anselmo Holt MD Primary Care Provider [phone] Reason for Visit * Reason Onset Date Comments Medication Refill 11/30/2009 Encounter Details Date Type Department Care Team (Late st Contact Info) Description 11/30/2009 Refill Initial Department [address] [place] [address] ATTN: [place] [address] Mychart, Generic Provider Social History Tobacco Use Types Packs/Day Years Used Date Smoking Tobacco: Never Alcohol Use Standard Drinks/Week Comments No 0 (1 standard drink = 0.6 oz pur e alcohol) Comments No Sex and Gender Information Value Date Recorded Sex Assigned at Not on file Legal Sex Female 4:45 AM DISTRICT ADVISER Gender Identity Not on file Sexual Orientation Not on file documented as of this encounter Plan of Treatment Upcoming Encounters Date Type Department Care Team (Late st Contact Info) Description 03/23/2025 3:00 PM DISTRICT ADVISER Office Visit [facility] Primary Care [address] [place] [address] Anselmo Holt MD [address] [place] [address] [address] [place] [address] documented as of this encounter Visit Diagnoses Not on filedocumented in this encounter Care Teams Waste Management Recycling Technician Relationship Specialty Start Date End Date Anselmo Holt MD PCP - General 06/15/09 documented as of this encounter
--- OUTSIDE RECORDS SUMMARY | 2024-12-20 10:54 | XMS_ITS | Clinical Summary ---
Author Organization [facility] Address [address] [place] [address] Phone Care Team Providers Care Supervisor Harvesting Name Role Phone Provider, None Primary Care Provider Unavailabl e Allergies Active Allergy Reactions Criticality Noted Date Comments Latex Other (see Comments) 05/07/2024 blisters Penicillins Hives 05/07/2024 Medications ondansetron (ZOFRAN-ODT) 4 MG TABLET DISPERSIBLE Take 1 Tablet by mouth every 8 hours as needed for Nausea - 1st line. 20 Tablet 05/07/2024 Active Social History Tobacco Use Types Packs/Day Years Used Date Smoking Tobacco: Never Smokeless Tobacco: Never Tobacco Cessation:Counseling Given: Not Answered Alcohol Use Standard Drinks/Week Comments Not Currently 0 (1 standard drink = 0.6 oz pur e alcohol) Comments Unknown Sex and Gender Information Value Date Recorded Sex Assigned at Not on file Legal Sex Female 9:47 PM CDT Gender Identity Not on file Sexual Orientation Not on file Last Filed Vital Signs Vital Sign Reading Time Taken Comments Blood Pressure 117/49 05/07/2024 10:15 AM SHIP ENGINES OPERATING ENGINEER Pulse 85 05/07/2024 10:15 AM SHIP ENGINES OPERATING ENGINEER Temperature 37.2 C (99 F) 05/07/2024 8:32 AM SHIP ENGINES OPERATING ENGINEER Respiratory Rate 89 05/07/2024 8:32 AM SHIP ENGINES OPERATING ENGINEER Oxygen Saturation 93% 05/07/2024 10: 15 AM SHIP ENGINES OPERATING ENGINEER Inhaled Oxygen Concentration - - Weight 81.5 kg (179 lb 10.8 oz) 05/07/2024 8:32 AM SHIP ENGINES OPERATING ENGINEER Height 160 cm (5' 3) 05/07/2024 8:32 AM SHIP ENGINES OPERATING ENGINEER Body Mass Index 31.83 05/07/2024 8:32 AM SHIP ENGINES OPERATING ENGINEER Plan of Treatment Health Maintenance Due Date Last Done Comments Hepatitis C Virus (HCV) Screening 1950 Cologuard 1997 Immunochemical Fecal Occult Blood 1997 Zoster Immunization (1 of 2) 2002 SARS-COV-2 Immunization (2 - season) 2024 07/22/2020 Mammogram 05/18/2024 05/18/2023, 09/2023, 05/17/2022, Additional history exists Influenza Immunization (#1) 01/12/202505/2023, 03/13/2023, 04/07/2022, Additional history exists DEXA Bone Density 03/26/2025 03/26/2023, , 05/22/2018, Additional history exists Respiratory Syncytial Virus (RSV) Immunization (Adult) (1 - 1-dose 75+ series) 2027 Colonoscopy 04/26/2031 04/26/2021, 04/13, 04/25/2010 Colorectal Cancer Screening 04/26/2031 DTaP/Tdap/Td Immunization Discontinued 05/14/2008, TdaP Immunization Completed 05/14/2008, 01/06/2008 Pneumococcal Immunization (50+ years) Completed 09/12/2023, 11/06/2018, 10/04/2017 Pneumococcal Immunization Combined Discontinued 09/12/2023, 11/06/2018, 10/04/2017 Hepatitis B Immunization Aged Out No longer eligible based on patient's age to complete this topic Human Papillomavirus (HPV) Immunization Aged Out No longer eligible based on patient's age to complete this topic Meningococcal Immunization (ACWY) Aged Out No longer eligible based on patient's age to complete this topic Rotavirus Immunization Aged Out No lo nger eligible based on patient's age to complete [place] [address] MEDICARE C AETNA Care Teams Supervisor Harvesting Relationship Specialty Start Date End Date Provider, None [place] PCP - General 05/07/24
--- OUTSIDE RECORDS SUMMARY | 2024-12-20 10:54 | XMS_ITS | Encounter Summary ---
Author Organization [facility] Address [address] [place] [address] Care Team Providers Care Cut Off Machine Helper Name Role Phone Anselmo Holt MD Primary Care Provider [phone] Encounter Details Date Type Department Care Team (Late st Contact Info) Description 05/08/2015 Nurse Triage Report [facility]CTION Aleksandra Fowler, RN Social History Tobacco Use Types Packs/Day Years Used Date Smoking Tobacco: Never Smokeless Tobacco: Never Alcohol Use Standard Drinks/Week Comments No 0 (1 standard drink = 0.6 oz pur e alcohol) Comments No Sex and Gender Information Value Date Recorded Sex Assigned at Not on file Legal Sex Female 4:45 AM CAMPAIGN MARKETING SPECIALIST Gender Identity Not on file Sexual Orientation Not on file documented as of this encounter Progress Notes * Aleksandra Fowler RN - 05/08/2015 3:38 PM CST CHART DOCUMENTATION ONLY Call Type: Triage Call Presenting Problem: I have diarrhea. Report feedback Dr. Kazdan Associated Symptoms: watery stools x3 Onset: 24 hours Location: GI Pain Assessment: 1 - 10 with 10 being the most severe pain none Treatment so far for current presenting problem: toast History (Clinical Problems): none Medications: remitidine, anastrazol, zoloft, metaproloft, pravastatin Medication reactions: NKA <<<<<<<< TRIAGE NOTE >>>>>>>> <<<<<<<< TRIAGE/OUTCOME >>>>>>>> Guideline Title: Diarrhea or Other Change in Bowel Habits Recommended Disposition: See Provider within 24 hours Original Inclination: Call Provider/See in 24 Intended Action: Call or See Provider within 24 hrs Physician Contacted: No Diarrhea lasting longer than 48 hours AND not improving with home care ? YES AIGN MARKETING SPECIALIST documented in this encounter Plan of Treatment Upcoming Encounters Date Type Department Care Team (Late st Contact Info) Description 03/23/2025 3:00 PM CAMPAIGN MARKETING SPECIALIST Office Visit [facility] Primary Care [address] [place] [address] Anselmo Holt MD [address] [place] [address] [address] [place] [address] documented as of this encounter Visit Diagnoses Not on filedocumented in this encounter Care Teams Cut Off Machine Helper Relationship Specialty Start Date End Date Anselmo Holt MD PCP - General 06/15/09 documented as of this encounter
--- OUTSIDE RECORDS SUMMARY | 2024-12-20 10:54 | XMS_ITS ---
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 Past Treatment and Therapy Plans No past plan information found. Lifetime Dose Tracking * Chemical Lifetime Dose Automatic Entry Manual Entr y Effective Dose 12.52 mSv 12.52 mSv 0 mSv Total DLP 1,085.37 DLP 1,085.37 DLP 0 DLP CTDIvol Max 64.23 mGy 64.23 mGy 0 mGy CTDIvol Min 15.7 mGy 15.7 mGy 0 mGy Resolved Problems Problem Noted Date Diagnosed Date Resolved Date Gallstones 04/21/2021 05/10/2021 Breast cancer, stage 1 07/12/201005/29 Foot pain 06/15/2009 07/12/2010 Heart murmur 06/15/2009 11/28/2011
--- OUTSIDE RECORDS SUMMARY | 2024-12-20 10:54 | XMS_ITS | Encounter Summary ---
Author Organization [facility] Address [address] Attn: [place] [address] Care Team Providers Care Informatics Physician Name Role Phone Anselmo Holt MD Primary Care Provider Reason for Visit * Reason Onset Date Comments Medication Refill 11/30/2009 Encounter Details Date Type Department Care Team (Late st Contact Info) Description 11/30/2009 Refill Initial Department [address] [place] [address] ATTN: [place] [address] Mychart, Generic Provider Social History Tobacco Use Types Packs/Day Years Used Date Smoking Tobacco: Never Alcohol Use Standard Drinks/Week Comments No 0 (1 standard drink = 0.6 oz pur e alcohol) Comments No Sex and Gender Information Value Date Recorded Sex Assigned at Not on file 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 Gender Identity Not on file Sexual Orientation Not on file documented as of this encounter Plan of Treatment Upcoming Encounters Date Type Department Care Team (Late st Contact Info) Description 03/23/2025 3:00 PM OPERATIONS SECTION MANAGER Office Visit [facility] [id number] [place] [address] Anselmo Holt MD [address] [place] [address] [address] [place] [address] documented as of this encounter Visit Diagnoses Not on filedocumented in this encounter Care Teams Informatics Physician Relationship Specialty Start Date End Date Anselmo Holt MD PCP - General 06/15/09 documented as of this encounter
[2024-12-20 11:01] VITALS: BP 119/59; PULSE 74; RESP 16; TEMP 36.7; O2SAT 98
--- NOTE | 2024-12-20 11:22 | ED_ITS ---
HPI - Wound/Laceration General Chief Complaint: Skin/Abscess/Foreign Body Stated Complaint: left foot infected toe Time Seen by Provider: 12/20/24 11:10 Source: patient Mode of arrival: ambulatory Limitations: no limitations History of Present Illness HPI narrative: Juan is a 74-year-old female patient presenting to the clinic today with complaints of a left great toe infection. She reports symptoms have been going on for 1 week. She suspect she has an ingrown toenail and is causing redness and swelling to the left great toe. No known fevers, chills, body aches. Has not taken any medications to treat her symptoms. She has not diabetic. Related Data Home Medications ?Medication ?Instructions ?Recorded ?Confirmed ?Last Taken ?Type ergocalciferol (vitamin D2) 1,250 1,250 mcg PO WEEKLY 04/08/22 04/08/22 Unknown History mcg (50,000 unit) capsule famotidine 20 mg tablet 20 mg PO BID 04/08/22 04/08/22 Unknown History metoprolol succinate 25 mg 25 mg PO DAILY 04/08/22 04/08/22 Unknown History tablet,extended release 24 hr sertraline 100 mg tablet 100 mg PO DAILY 04/08/22 04/08/22 Unknown History Allergies Allergy/AdvReac Type Severity Reaction Status Date / Time Penicillins Allergy Intermediate Hives Verified 04/08/22 19:25 Review of Systems Review of Systems: Pertinent positives per HPI. Patient denies any fever, chills, rash, headache, visual changes, dizziness, cough, runny nose, sore throat, shortness of breath, chest pain, palpitations, nausea, vomiting, diarrhea, constipation, abdominal pain, or any urinary issues. [facility] Past Medical History Medical History (Updated 12/20/24 @ 11:18 by Remington Elizalde APRN) GERD (gastroesophageal reflux disease) OCD (obsessive compulsive disorder) Hypertension Surgical History Surgical History (Updated 04/15/22 @ 08:48 by Brittany Sharpe NP) History of lumpectomy of right breast radiation treatment 2009 Social History Social History (Updated 04/15/22 @ 08:48 by Brittany Sharpe NP) Smoking status: Never smoker Alcohol intake: unknown Substance use: never Living arrangements: with family Gender identity (if verbalized by the patient): Female Comments At the time of my signature, I reviewed and agree with the nursing past medical, surgical, social, and family history. There is no relevant family history pertinent to the patient complaint. Exam Narrative: General: Well-developed, well nourished, in no apparent distress Head: Normocephalic, atraumatic. Cardio: Regular rate and rhythm, s1 and s2 normal, no murmur appreciated. Resp: Clear to auscultation bilaterally, no rhonchi, rales, wheezing or rubs. Musculoskeletal: No deformity, redness and swelling to the distal left great toe with purulent discharge to the medial toenail and redness and swelling over the cuticle area, tender to palpation over the distal medial and lateral toe, grossly normal range of motion, muscle strength strong and equal, peripheral pulse strong, no edema, no cyanosis, normal gait and station Course Course Emergency Course: Portions of this record may have been created with voice recognition software. Level of Care: Express Care Visit Vital Signs Vital signs: Vital Signs Temperature 36.7 C 12/20/24 11:01 Pulse Rate 74 12/20/24 11:01 Respiratory Rate 16 12/20/24 11:01 Blood Pressure 119/59 L 12/20/24 11:01 Pulse Oximetry 98 12/20/24 11:01 Oxygen Delivery Room Air 12/20/24 11:01 Temperature 36.7 C 12/20/24 11:01 Pulse Rate 74 12/20/24 11:01 Respiratory Rate 16 12/20/24 11:01 Blood Pressure 119/59 L 12/20/24 11:01 Pulse Oximetry 98 12/20/24 11:01 Oxygen Delivery Room Air 12/20/24 11:01 Vital signs reviewed MDM - Wound/Laceration MDM Narrative Medical decision making narrative: At the time of visit patient is resting comfortably on the exam table. Patient appears to be nontoxic. Complaints of a left great toe infection. She reports symptoms have been going on for 1 week. She suspect she has an ingrown toenail and is causing redness and swelling to the left great toe. No known fevers, chills, body aches. Has not taken any medications to treat her symptoms. No history of diabetes. Plan: I suspect patient has a left infected ingrown toenail. Prescription for mupirocin cream and cephalexin was sent to the pharmacy. Recommend follow-up [facility] electrical and instrumentation manager. Dr. Tapia. Supportive measures were discussed with the patient and they voiced understanding discharge instructions and agrees to treatment plan. Return precautions reviewed Differential Diagnosis Differential diagnosis: Likely abscess, abrasion, avulsion of skin and other (Cellulitis, ingrown toenail with infection, paronychia) Discharge Plan Discharge Clinical Impression: Ingrowing toenail with infection Patient Disposition: Home Condition: Stable Instructions: Antibiotic Form, Ingrown Nail (ED) Additional Instructions: Take cephalexin 3 times daily as directed Apply mupirocin cream to the affected area twice daily as directed May complete warm Epson salt soaks 3-4 times daily May take Tylenol/Motrin per bottle directions as needed for pain Follow-up with electrical and instrumentation manager as discussed-call on Sunday and schedule appointment Go to the emergency room if symptoms worsen-increase in redness, increase in pain, increase in swelling, fevers not controlled by Tylenol or Motrin, or streaking Patient Language: Maltese Prescriptions: New cephalexin 500 mg capsule 500 mg PO Q8H 7 Days Qty: 21 0RF mupirocin [Centany] 2 % ointment 1 applic topical BID 7 Days Qty: 22 0RF No Action sertraline 100 mg tablet 100 mg PO DAILY famotidine 20 mg tablet 20 mg PO BID metoprolol succinate 25 mg tablet extended release 24 hr 25 mg PO DAILY ergocalciferol (vitamin D2) 1,250 mcg (50,000 unit) capsule 1,250 mcg PO WEEKLY mupirocin 2 % ointment 1 applic TOPICAL BID Qty: 15 0RF cephalexin 500 mg capsule 500 mg PO Q12H Qty: 14 0RF Follow-up/Referrals: Agustin Dougherty DPM [Physician] - 2 Days (Left great toe- Ingrown toenail with infection) Yanet,Anselmo Rosado MD [Primary Care Provider] - Time of Disposition: 11:18 Quality NIHSS Nursing Documentation ED NIHSS nursing documentation: reviewed/agree
== END 2024-12-20 11:25 | disposition home or self-care (01) ==
PROVIDERS: Emergency Provider Nurse Practitioner Family; PCP Internal Medicine
DX: L60.0 Ingrowing nail (principal); I10 Essential (primary) hypertension; K21.9 Gastro-esophageal reflux disease without esophagitis; F42.9 Obsessive-compulsive disorder, unspecified
CPT/HCPCS: 99213; G0463